=== PATIENT | female | born 1960 | race Caucasian/White ===

== ENCOUNTER → 2016-09-26 | Outpatient (CLI) | payer BC ==
[~2016-09-26] MED LIST: CONJ0.3T3; FSM70; MULT-506; OXYC-57
[2016-09-26 09:57] LABS: BLOOD UREA NITROGEN 18 mg/dl (7-18); BUN/CREATININE RATIO 19.1 (10-20); CALCIUM 9.5 mg/dl (8.5-10.1); CARBON DIOXIDE 30 mmol/L (21-32); CHLORIDE 104 mmol/L (98-107); CREATININE 0.92 mg/dl (0.60-1.20); GLUCOSE 97 mg/dl (70-99); POTASSIUM 3.8 mmol/L (3.5-5.1); SODIUM 141 mmol/L (136-145)
== END | disposition home or self-care (01) ==
LOC: C.LAB 07:44
PROVIDERS: ATTEND Internal Medicine Geriatric Medicine
DX: I10 Essential (primary) hypertension (principal); R73.9 Hyperglycemia, unspecified

== ENCOUNTER → 2016-12-17 | Outpatient (CLI) | payer BC ==
[~2016-12-17] MED LIST changes: +CIPR-255 PO; +GLC/500 PO; +HYDR12.55 PO; +METO25TA3 PO; +PHEN-876 PO
--- NOTE | 2016-12-17 16:39 | MAMMOGRAPHY REPORT ---
BILATERAL DIGITAL SCREENING MAMMOGRAM TOMOSYNTHESIS WITH CAD: 12/17/2016 CLINICAL HISTORY: Routine screening. Patient has no complaints. TECHNIQUE: Breast tomosynthesis in addition to standard 2D mammography was performed. Current study was also evaluated with a Computer Aided Detection (CAD) system. COMPARISON: Comparison is made to exams dated: 12/11/2015 mammogram, 12/06/2014 mammogram, 12/05/2013 ma mmogram, 12/02/2012 mammogram, 12/02/2011 mammogram, and 11/26/2010 mammogram - [facility]. BREAST COMPOSITION: There are scattered areas of fibroglandular density in both breasts. FINDINGS: No suspicious masses, calcifications, or areas of architectural distortion are noted in e ither breast. There has been no significant interval change compared to prior exams. IMPRESSION: ACR BI-RADS CATEGORY 1: NEGATIVE There is no mammographic evidence of malignancy. A 1 year screening mammogram is recommended. The p atient will receive written notification of the results. Approximately 10% of breast cancers are not detected with mammography. A negative mammographic repor t should not delay biopsy if a clinically suggestive mass is present. Tracy Davis M.D. ah/:12/17/2016 15:26:43 Material Specialist: Wilbur ACOSTA(R)(M), [facility] letter sent: Normal 1/2 BI-RADS Code: ACR BI-RADS Category 1: Negative
== END | disposition home or self-care (01) ==
LOC: C.MAMM 14:26
PROVIDERS: ATTEND Internal Medicine Geriatric Medicine
DX: Z12.31 Encounter for screening mammogram for malignant neoplasm of breast (principal)

== ENCOUNTER 2017-08-05 06:17 | Emergency (ER) | payer BC ==
[~2017-08-05] VITALS: Ht 165.1 cm; Wt 73.7 kg
[~2017-08-05 06:17] MED LIST changes: -CIPR-255 PO; -GLC/500 PO; -HYDR12.55 PO; -METO25TA3 PO; -PHEN-876 PO
[2017-08-05 06:20] VITALS: BP 182/83; PULSE 74; TEMP 36.5; O2SAT 98; Ht 165.1 cm; Wt 73.7 kg
[2017-08-05] MEDS ORDERED: PHENAZOPYRIDINE HOME PACK 200 MG VIAL PO STA (06:39)
[2017-08-05] MEDS ORDERED: CIPROFLOXACIN 500 MG TAB PO STA (06:39)
[2017-08-05] MEDS ORDERED: CIPROFLOXACIN 500MG HOME PACK PO STA (06:39)
[2017-08-05] MEDS ORDERED: PHENAZOPYRIDINE HCL 200 MG TAB PO STA (06:39)
[2017-08-05] MEDS ORDERED: METO25TA3 PO (06:43)
[2017-08-05] MEDS ORDERED: HYDR12.55 PO (06:43)
[2017-08-05] MEDS ORDERED: GLC/500 PO (06:43)
[2017-08-05] MEDS ORDERED: PHEN-876 PO (06:44)
[2017-08-05] MEDS ORDERED: CIPR-255 PO (06:44)
[2017-08-05 07:06] LABS: MANUAL MICROSCOPIC REQUIRED? YES; URINE APPEARANCE SL CLOUDY (CLEAR); URINE BILIRUBIN NEG (NEG); URINE COLOR RED; URINE NITRITE NEG (NEG); URINE SPECIFIC GRAVITY 1.015 (1.000-1.030); UROBILINOGEN NEG (NEG)
[2017-08-05 07:08] LABS: REVIEW REQ? NO
[2017-08-05 07:33] LABS: URINE RBC >30 /hpf (0-4); URINE WBC >30 /hpf (0-5)
[2017-08-05 07:36] LABS: URINE BACTERIA NEG (NEG); ZZUR CULT IF INDIC CLEAN CATCH YES
--- NOTE | 2017-08-05 07:53 | EMERGENCY ROOM VISIT NOTE ---
ED Visit Note First contact with patient: 06:32 CHIEF COMPLAINT: Frequent and painful urination for 2 days HISTORY OF PRESENT ILLNESS: This 56 year old woman has had increased frequency of urination, burning pain with urination, and a feeling of incomplete voiding. She passes very small volumes of urine with each episode of voiding. She denies back pain, fever, or vaginal discharge. The patient was recently on Macrobid for similar symptoms and she had thought they resolved. REVIEW OF SYSTEMS: GENERAL: No fever or chills, easy fatigue, loss of appetite , or significant weight change. GASTROINTESTINAL: No abdominal pain, vomiting , loss of appetite, or diarrhea. PMH: The patient is healthy; there is no significant medical or surgical history, HTN SOCIAL HISTORY: Patient lives at home. PHYSICAL EXAM: Vital Signs: Reviewed Nurse's notes. The abdomen is soft, mildly tender in the suprapubic area, but no masses or organs are felt. There is no CVA tenderness. The skin is clear and the patient is alert and appears well. EMERGENCY DEPARTMENT COURSE: Urinalysis shows pyuria and hematuria. Nitrate test is negative. DIAGNOSIS: UTI - Cystitis DISCHARGE INSTRUCTIONS & TREATMENT: High fluid intake, Cipro twice a day for 7 days. pyridium. Call in 36 hours if you are not improved to check culture results, and the appropriateness of the antibiotic therapy. Current/Historical Medications Scheduled Ciprofloxacin Hcl (Cipro), 1 TAB PO BID Hydrochlorothiazide (Hydrochlorothiazide), 12.5 MG PO DAILY Metformin Hcl (Glucophage), 500 MG PO DAILY Metoprolol Succ (Toprol Xl) (Toprol-Xl), 25 MG PO DAILY Phenazopyridine HCl (Pyridium), 200 MG PO TID Allergies Coded Allergies: Cephalosporins (Verified Allergy, Unknown, 08/05/17) Penicillins (Verified Allergy, Unknown, 08/05/17) Vital Signs Date Time Temp Pulse Resp B/P (MAP) Pulse Ox O2 Delivery O2 Flow Rate FiO2 08/05/17 06:20 36.5 74 20 182/83 98 Room Air Laboratory Results Test 08/05/17 06:30 Urine Color RED Urine Appearance SL CLOUDY (CLEAR) Urine pH 6.0 (4.5-7.5) Urine Specific [place] 1.015 (1.000-1.030) Urine Protein 1+ (NEG) Urine Glucose (UA) NEG (NEG) Urine Ketones NEG (NEG) Urine Occult Blood 3+ (NEG) Urine Nitrite NEG (NEG) Urine Bilirubin NEG (NEG) Urine Urobilinogen NEG (NEG) Urine Leukocyte Esterase SMALL (NEG) Urine RBC >30 /hpf (0-4) Urine WBC >30 /hpf (0-5) Urine Epithelial Cells 10-20 /lpf (0-5) Urine Bacteria NEG (NEG) Medications Administered Medications (Trade) Dose Ordered Sig/Gloria Route Start Time Stop Time Status Last Admin Dose Admin Ciprofloxacin (Cipro Tab) 500 mg NOW STAT PO 08/05/17 06:39 08/05/17 06:41 DC 08/05/17 06:51 500 MG Phenazopyridine HCl (Phenazopyridine HCl 200MG Home Pack) 1 homepack UD STAT PO 08/05/17 06:39 08/05/17 06:41 DC 08/05/17 06:51 1 HOMEPACK Phenazopyridine HCl (Pyridium Tab) 200 mg NOW STAT PO 08/05/17 06:39 08/05/17 06:41 DC 08/05/17 06:51 200 MG Ciprofloxacin (Cipro 500MG Home Pack) 1 homepack UD STAT PO 08/05/17 06:39 08/05/17 06:41 DC 08/05/17 06:51 1 HOMEPACK Departure Information Impression Primary Impression: UTI (urinary tract infection) Dispostion Home / Self-Care Condition GOOD Prescriptions Phenazopyridine HCl (Pyridium) 200 Mg Tab 200 MG PO TID for Bladder pain, #6 TAB Prov: Yohannes Friedman MD 08/05/17 Ciprofloxacin Hcl (CIPRO) 500 Mg Tab 1 TAB PO BID for 7 Days, #14 TAB Prov: Yohannes Friedman MD 08/05/17 Referrals Veto Nayak D.O. Forms HOME CARE DOCUMENTATION FORM, School Instructions, Work Instructions, IMPORTANT VISIT INFORMATION Patient Instructions My [facility] Aristes Ogorod Additional Instructions Follow up with Dr Trejo office for continued UTI symptoms You were found to have an elevated blood pressure today (>120 sytolic or >90 diastolic). Per medicare guidelines, you need to follow up with this blood pressure screening with your Primary Care Physician (PCP). For a new PCP call [phone]. Culture results are usually available in approx 48 hours You have been examined and treated today on an emergency basis only. This is not a substitute for, or an effort to provide, complete comprehensive medical care. It is impossible to recognize and treat all injuries or illnesses in a single emergency department visit. It is therefore important that you follow up closely with your PCP. Call as soon as possible for an appointment. Thank you for your time and consideration. I look forward to speaking with you again soon. Please don't hesitate to call us if you have any questions. Problem Qualifiers Primary Impression: UTI (urinary tract infection) Urinary tract infection type: acute cystitis Hematuria presence: with hematuria Qualified Codes: N30.01 - Acute cystitis with hematuria
== END 2017-08-05 06:58 | disposition home or self-care (01) ==
LOC: C.EDB 06:18
DX: N39.0 Urinary tract infection, site not specified (principal); I10 Essential (primary) hypertension

== ENCOUNTER → 2017-08-12 | Outpatient (CLI) | payer BC ==
[~2017-08-12] MED LIST changes: +CIPR-255 PO; -CONJ0.3T3; -FSM70; +GLC/500 PO; +HYDR12.55 PO; +METO25TA3 PO; -MULT-506; -OXYC-57; +PHEN-876 PO
--- NOTE | 2017-08-12 07:39 | DIAGNOSTIC IMAGING REPORT ---
TWO VIEW CHEST CLINICAL HISTORY: Cough. FINDINGS: PA and lateral chest radiographs are obtained. No prior studies are available for comparison at the time of dictation. The cardiomediastinal silhouette is unremarkable. Nonspecific interstitial thickening is observed. No airspace consolidation or pleural effusion is seen. Tiny calcified granulomas are suspected. There is no pneumothorax. The skeletal structures appear osteopenic. The bony thorax appears intact. IMPRESSION: No active disease in the chest. Electronically signed by: Angel Barrios M.D. 08/12/2017 7:38 AM Dictated Date/Time: 08/12/2017 7:37 AM
== END | disposition home or self-care (01) ==
LOC: C.RAD 06:42
PROVIDERS: ATTEND Physician Assistant
DX: R05 Cough (principal)

== ENCOUNTER → 2017-10-19 | Outpatient (CLI) | payer OTHER ==
[2017-10-19 09:59] LABS: BLOOD UREA NITROGEN 16 mg/dl (7-18); CALCIUM 9.4 mg/dl (8.5-10.1); CARBON DIOXIDE 30 mmol/L (21-32); CHOLESTEROL 200 mg/dl (0-200); CREATININE 0.91 mg/dl (0.60-1.20); GLUCOSE 89 mg/dl (70-99); POTASSIUM 3.2 mmol/L (3.5-5.1); SODIUM 141 mmol/L (136-145)
[2017-10-19 10:10] LABS: LDL CHOLESTEROL CALCULATED 124 mg/dl
[2017-10-19 10:27] LABS: HEMOGLOBIN A1C 5.9 % (4.5-5.6)
== END | disposition home or self-care (01) ==
LOC: C.LAB 06:48
PROVIDERS: ATTEND Internal Medicine Geriatric Medicine
DX: M10.9 Gout, unspecified (principal); R73.9 Hyperglycemia, unspecified; I10 Essential (primary) hypertension; M85.80 Other specified disorders of bone density and structure, unspecified site; E55.9 Vitamin D deficiency, unspecified

== ENCOUNTER → 2017-11-02 | Outpatient (CLI) | payer OTHER | END | disposition home or self-care (01) | LOC: C.LAB 07:00 | PROVIDERS: ATTEND Internal Medicine Geriatric Medicine | DX: R94.6 Abnormal results of thyroid function studies (principal); E87.6 Hypokalemia ==

== ENCOUNTER → 2017-12-21 | Outpatient (CLI) | payer OTHER ==
--- NOTE | 2017-12-22 07:40 | MAMMOGRAPHY REPORT ---
BILATERAL DIGITAL SCREENING MAMMOGRAM TOMOSYNTHESIS WITH CAD: 12/21/2017 CLINICAL HISTORY: Routine screening. Patient has no complaints. TECHNIQUE: Breast tomosynthesis in addition to standard 2D mammography was performed. Current study was also evaluated with a Computer Aided Detection (CAD) system. COMPARISON: Comparison is made to exams dated: 12/17/2016 mammogram, 12/11/2015 mammogram, 12/06/2014 ma mmogram, 12/05/2013 mammogram, 12/02/2012 mammogram, and 12/02/2011 mammogram - [facility] BREAST COMPOSITION: There are scattered areas of fibroglandular density in both breasts. FINDINGS: There is asymmetry of the size of the breasts, right greater than left, likely normal anato apollo variation. The glandular pattern is similar to prior mammograms. No developing mass, architectu ral distortion or cluster of suspicious microcalcifications is seen in either breast. IMPRESSION: ACR BI-RADS CATEGORY 2: BENIGN There is no mammographic evidence of malignancy. A 1 year screening mammogram is recommended. The pa tient will receive written notification of the results. Approximately 10% of breast cancers are not detected with mammography. A negative mammographic report should not delay biopsy if a clinically suggestive mass is present. Karon Mccracken M.D. ay/:12/21/2017 15:26:18 Mortgage Loan Counselor: Anel CULVER)(M), [facility] letter sent: Normal 1/2 BI-RADS Code: ACR BI-RADS Category 2: Benign
== END ==
LOC: C.MAMM 13:59
PROVIDERS: ATTEND Internal Medicine Geriatric Medicine
DX: Z12.31 Encounter for screening mammogram for malignant neoplasm of breast (principal)

== ENCOUNTER → 2017-12-31 | Outpatient (CLI) | payer OTHER | END | disposition home or self-care (01) | LOC: C.LAB 06:44 | PROVIDERS: ATTEND Internal Medicine Geriatric Medicine | DX: R94.6 Abnormal results of thyroid function studies (principal) ==

== ENCOUNTER → 2018-04-22 | Outpatient (CLI) | payer OTHER ==
[~2018-04-22] MED LIST changes: -PHEN-876 PO
== END | disposition home or self-care (01) ==
LOC: C.RDSM 09:51
PROVIDERS: ATTEND Podiatrist
DX: M79.672 Pain in left foot (principal)